=== PATIENT | male | born 1955 | race Caucasian/White ===

== ENCOUNTER 2021-03-28 16:35 | Inpatient (IN) | payer OTHER, SELFPAY ==
[2021-03-28 16:56] VITALS: BP 114/58; PULSE 84; RESP 20; TEMP 36.9; O2SAT 99; BMI 26.1
[2021-03-28 17:39] LABS: Add Manual Diff / Slide Review NO; Basophils Absolute Auto 0 /uL (0-100); Basophils Percent Auto 0.3 % (0-2); Eosinophils Absolute Auto 0 /uL (0-450); Hematocrit 32.4 % (41-53); Hemoglobin 10.8 g/dL (13.5-17.5); Lymphocytes Absolute Auto 900 /uL (1100-4500); Lymphocytes Percent Auto 6.5 % (25-40); Mean Corpuscular HGB Conc 33.3 % (30-36); Mean Corpuscular Hemoglobin 31.5 PG (26-34); Mean Corpuscular Volume 94.5 fL (80-100); Monocytes Absolute Auto 2200 /uL (0-900); Monocytes Percent Auto 16.7 % (3-14); Neutrophils Absolute Auto 10200 /uL (1500-7000); Neutrophils Percent Auto 76.5 % (50-75); Platelet Count 281 X10^3/uL (150-400); Red Blood Cell Count 3.43 X10^6/uL (4.5-5.9); Red Cell Distribution Width 19.5 % (11.6-14.8); White Blood Cell Count 13.3 X10^3/uL (4.5-11.0)
[2021-03-28 17:56] LABS: Alanine Aminotransferase 34 IU/L (<50); Albumin 2.8 g/dL (3.5-5.0); Albumin Globulin Ratio 0.6 (1.0-2.8); Alkaline Phosphatase 228 U/L (38-126); Aspartate Aminotransferase 84 IU/L (17-59); Bilirubin Total 1.2 mg/dL (0.2-1.3); Blood Urea Nitrogen 37 mg/dL (9-20); Calcium 8.8 mg/dL (8.4-10.2); Carbon Dioxide 24 mmol/L (22-32); Chloride 91 mmol/L (98-107); Estimated Glomerular Filt Rate 52.1 mL/min (>60); Globulin 4.4 g/dL (1.7-4.1); Glucose 102 mg/dL (80-110); HEMOLYSIS < 15 (0-50); Lipase 160 U/L (23-300); Potassium 4.9 mmol/L (3.4-5.1); Sodium 122 mmol/L (137-145); Total Protein 7.2 g/dL (6.3-8.2)
--- NOTE | 2021-03-28 18:20 | ED_ITS ---
HPI - Abdominal Pain General Chief Complaint: Abdominal Pain Stated Complaint: states needs a amniocenthesis Time Seen by Provider: 03/28/21 17:03 Source: patient Mode of arrival: Ambulatory Limitations: no limitations History of Present Illness HPI narrative: 65M never smoker with history Of colon cancer status post colectomy, currently receiving chemotherapy every 2 weeks (most recently 3 weeks ago in [place]) presents with a chief complaint of fatigue and lightheadedness as well as a return of abdominal swelling and concern for ascites. Patient has developed ascites as a consequence of his chronic illness, he denies any history of alcohol abuse. He has had to paracentesis, most recently last week and states they took approximately 8 L off. He presents today due to the return of swelling, he denies any pain or shortness of breath. He has had no fever or chills. He denies nausea, vomiting or diarrhea. He denies any change in his medications and states he has been taking them as prescribed Related Data Allergies Allergy/AdvReac Type Severity Reaction Status Date / Time No Known Drug Allergies Allergy Verified 03/28/21 16:56 Review of Systems Review of Systems Narrative: see HPI HEENT: Denies sinus pain, ear pain, sore throat, difficulty swallowing, dizziness. RESPIRATORY: Denies dyspnea, cough, wheezing, hemoptysis, sputum. CARDIOVASCULAR: Denies chest pain, palpitations, orthopnea, edema, GASTROINTESTINAL: See HPI : Denies dysuria, frequency, incontinence, hematuria, urinary retention. MUSCULOSKELETAL: denies weakness, joint pain, or bony pain SKIN: Denies rash, skin lesions, or other NEUROLOGIC: Denies weakness, headache, numbness, change in speech, confusion, seizures, incoordination. PSYCHIATRIC: No concerning psychosocial issues. 12 point review of systems is negative except for those stated above Patient History Medical History (Updated 03/29/21 @ 00:05 by SAIGE Cantu) Colon cancer History of abdominal paracentesis Patient on antineoplastic chemotherapy regimen Surgical History (Updated 03/29/21 @ 00:05 by SAIGE Cantu) History of colectomy Social History Smoking Status: Never smoker Smoking Status: Never smoker alcohol intake frequency: a few times a month Substance Use Type: does not use Exam Narrative Exam Narrative: GENERAL: [65] year old patient appears stated age. Well- developed patient, in mild distress. HEAD: Atraumatic. Normocephalic. EYES: Pupils equal round and reactive. Extraocular motions intact. No scleral icterus. No injection or drainage. ENT: Dry mucous membranes Nose without bleeding, purulent drainage. Throat without erythema, tonsillar hypertrophy or exudate. Airway patent. NECK: Trachea midline. Non tender CARDIOVASCULAR: Regular rate and rhythm without murmurs, gallops, or rubs. RESPIRATORY: Clear to auscultation. Breath sounds equal bilaterally. No wheezes, rales, or rhonchi. GASTROINTESTINAL: Abdomen soft, mild distension, ascites, . EXTREMITIES: No edema or joint tenderness. BACK: Nontender without deformity or crepitance. No flank tenderness. NEURO: AOx3. SKIN: No rash or erythema of visible areas Initial Vital Signs Initial Vital Signs: Vital Signs Temperature 98.5 F 03/28/21 16:56 Pulse Rate 84 03/28/21 16:56 Respiratory Rate 20 03/28/21 16:56 Blood Pressure 114/58 L 03/28/21 16:56 Pulse Oximetry 99 03/28/21 16:56 Course Orders Ordered: ED Orders 03/28/21 17:25 Complete Blood Count AUTO DIFF Stat Comprehensive Metabolic Panel Stat Lipase Stat Magnesium Urgent Uric Acid Urgent 03/28/21 18:58 Prothrombin Time INR Stat 03/28/21 20:51 US abdomen limited Stat 03/28/21 21:00 COVID19 - ADMIT (SPECIFICATION MANAGER swab/PCR) Stat 03/28/21 23:22 Education, smoking cessation ONGOING 03/28/21 23:45 Osmolality Urine Stat Osmolality, Serum Stat Sodium Urine Random Stat 03/28/21 23:48 US paracentesis Stat 03/28/21 23:52 Urinalysis and Microscopic Stat 03/28/21 23:57 Basic Metabolic Panel Urgent 03/29/21 05:00 Complete Blood Count AUTO DIFF DAILY Lipid Panel Routine Prothrombin Time INR Routine Al Hydrox/Mg Hydrox/Simethicone (Mag Hydrox/Alum/Simeth 30 Ml Udc) 30 ml PO Q6HR PRN PRN Reason: Dyspepsia Furosemide (Furosemide 40 Mg/4 Ml Vial) 20 mg IV DAILY ABHISHEK Sodium Chloride (Hypertonic Saline 3%) 500 mls @ 10 mls/hr IV CONT ABHISHEK Naloxone HCl (Naloxone 0.4 Mg/Ml Vial) 0.2 mg IV Q2MIN PRN PRN Reason: Opiate Reversal Ondansetron HCl (Ondansetron 4 Mg/2 Ml Inj) 4 mg IV Q8HR PRN PRN Reason: Nausea And Vomiting Vital Signs Vital signs: Vital Signs - 8 hr 03/28/21 16:56 03/28/21 20:23 Temperature 98.5 F Pulse Rate 84 89 Respiratory Rate 20 14 Blood Pressure 114/58 L 123/74 Pulse Oximetry 99 95 MDM - Abdominal Pain Lab Data Result diagrams: 03/28/21 17:25 03/28/21 17:25 Labs: Lab Results 03/28/21 03/28/21 03/28/21 Range/Units 17:25 17:25 17:25 WBC 13.3 H (4.5-11.0) X10^3/uL RBC 3.43 L (4.5-5.9) X10^6/uL Hgb 10.8 L (13.5-17.5) g/dL Hct 32.4 L (41-53) % MCV 94.5 (80-100) fL MCH 31.5 (26-34) PG MCHC 33.3 (30-36) % RDW 19.5 H (11.6-14.8) % Plt Count 281 (150-400) X10^3/uL Neut % (Auto) 76.5 H (50-75) % Lymph % (Auto) 6.5 L (25-40) % [place] % (Auto) 16.7 H (3-14) % Eos % (Auto) 0.0 L (2-4) % Baso % (Auto) 0.3 (0-2) % Neut # (Auto) 28098 H (0576-1980) /uL Lymph # (Auto) 900 L (3595-8514) /uL [place] # (Auto) 2200 H (0-900) /uL Eos # (Auto) 0 (0-450) /uL Baso # (Auto) 0 (0-100) /uL PT (10.1-12.7) SECONDS INR (0.9-1.3) Sodium 122 L (137-145) mmol/L Potassium 4.9 (3.4-5.1) mmol/L Chloride 91 L (98-107) mmol/L Carbon Dioxide 24 (22-32) mmol/L BUN 37 H (9-20) mg/dL Creatinine 1.37 H (0.66-1.25) mg/dL Estimated GFR 52.1 L (>60) mL/min BUN/Creatinine Ratio 27.0 H (6-22) Glucose 102 (80-110) mg/dL Uric Acid 4.9 (3.5-8.5) mg/dL Calcium 8.8 (8.4-10.2) mg/dL Magnesium (1.6-2.3) mg/dL Total Bilirubin 1.2 (0.2-1.3) mg/dL AST 84 H (17-59) IU/L ALT 34 (<50) IU/L Alkaline Phosphatase 228 H (38-126) U/L Total Protein 7.2 (6.3-8.2) g/dL Albumin 2.8 L (3.5-5.0) g/dL Globulin 4.4 H (1.7-4.1) g/dL Albumin/Globulin Ratio 0.6 L (1.0-2.8) Lipase 160 (23-300) U/L SARS-CoV-2 (PCR) (Negative) 03/28/21 03/28/21 03/28/21 Range/Units 17:25 18:58 21:00 WBC (4.5-11.0) X10^3/uL RBC (4.5-5.9) X10^6/uL Hgb (13.5-17.5) g/dL Hct (41-53) % MCV (80-100) fL MCH (26-34) PG MCHC (30-36) % RDW (11.6-14.8) % Plt Count (150-400) X10^3/uL Neut % (Auto) (50-75) % Lymph % (Auto) (25-40) % [place] % (Auto) (3-14) % Eos % (Auto) (2-4) % Baso % (Auto) (0-2) % Neut # (Auto) (1902-3100) /uL Lymph # (Auto) (7979-5340) /uL [place] # (Auto) (0-900) /uL Eos # (Auto) (0-450) /uL Baso # (Auto) (0-100) /uL PT 15.1 H (10.1-12.7) SECONDS INR 1.4 H (0.9-1.3) Sodium (137-145) mmol/L Potassium (3.4-5.1) mmol/L Chloride (98-107) mmol/L Carbon Dioxide (22-32) mmol/L BUN (9-20) mg/dL Creatinine (0.66-1.25) mg/dL Estimated GFR (>60) mL/min BUN/Creatinine Ratio (6-22) Glucose (80-110) mg/dL Uric Acid (3.5-8.5) mg/dL Calcium (8.4-10.2) mg/dL Magnesium 1.5 L (1.6-2.3) mg/dL Total Bilirubin (0.2-1.3) mg/dL AST (17-59) IU/L ALT (<50) IU/L Alkaline Phosphatase (38-126) U/L Total Protein (6.3-8.2) g/dL Albumin (3.5-5.0) g/dL Globulin (1.7-4.1) g/dL Albumin/Globulin Ratio (1.0-2.8) Lipase (23-300) U/L SARS-CoV-2 (PCR) Negative (Negative) Imaging Data US - abdomen: Radiologist's Impression: [address] [id number] ReportSigned Patient: Golden Yeboah Jr CMR#: [id number]: 6Acct:[id number]/Sex: 65 / MDate of Service: 03/28/21Loc: EDAccession Number: [id number] Procedure: US abdomen limited Ordering Provider: Miguel Zimmer D.O. PROCEDURE: US ABDOMEN LIMITED INDICATIONS: ASCITES TECHNIQUE: Real-time focused scanning was performed of the abdomen, with image documentation. COMPARISON: None. FINDINGS: There is moderate amount of ascites in all 4 quadrants of abdomen. IMPRESSION: Moderate amount of ascites in all 4 quadrant of abdomen. Dictated by: Woodrow Juarez M.D. on 03/28/2021 at 21:22 Approved by: Woodrow Juarez M.D. on 03/28/2021 at 21:22 [facility] Narrative Medical decision making narrative: Patient with recurrence of abdominal ascites as well as weakness and mild confusion in the setting of an acute hyponatremia. Today sodium is 122 and 1 week ago he was 134. Patient requires hospitalization for stabilization of his condition. There is no indication for emergent paracentesis and this can appropriately be cared for in the hospital by Radiology under ultrasound guidance. Discharge Plan Departure Patient Disposition: Admitted As Inpatient Clinical Impression: Acute hyponatremia Abdominal ascites Qualifiers: Ascites type: other type Qualified Code(s): R18.8 - Other ascites Admit Date/Time: 03/29/21 00:16 Admit Provider: Christine Tinajero
[2021-03-28 19:11] LABS: INR 1.4 (0.9-1.3); Prothrombin Time 15.1 SECONDS (10.1-12.7)
[2021-03-28 20:23] VITALS: BP 123/74; PULSE 89; RESP 14; O2SAT 95
--- NOTE | 2021-03-28 20:51 | DI.US.S_ITS ---
PROCEDURE: US ABDOMEN LIMITED INDICATIONS: ASCITES TECHNIQUE: Real-time focused scanning was performed of the abdomen, with image documentation. COMPARISON: None. FINDINGS: There is moderate amount of ascites in all 4 quadrants of abdomen. IMPRESSION: Moderate amount of ascites in all 4 quadrant of abdomen. Dictated by: Woodrow Juarez M.D. on 03/28/2021 at 21:22 Approved by: Woodrow Juarez M.D. on 03/28/2021 at 21:22
[2021-03-28 22:15] LABS: COVID19 - ADMIT (NP swab/PCR) Negative (Negative)
--- NOTE | 2021-03-28 23:48 | DI.US.S_ITS ---
PROCEDURE: US PARACENTESIS INDICATIONS: ASCITES TECHNIQUE: The indications, alternatives, benefits, risks, and complications of the procedure were explained to the patient. Written informed consent was obtained and placed in the chart. The abdomen and pelvis were examined sonographically, and an appropriate site was chosen for paracentesis. The skin was prepared and draped in the usual sterile fashion, and 1% lidocaine was infiltrated from the skin down through the peritoneal surface. A 19-gauge catheter-covered needle was then introduced into the peritoneal space, the catheter was advanced and the needle was withdrawn, and thereafter peritoneal fluid was withdrawn. The catheter was then removed and a dressing was applied. The fluid was discarded if the clinician did not order diagnostic testing of the fluid. COMPARISON: None. FINDINGS: Access site: Right lower quadrant Needle: One-Step centesis catheter with introducer needle. Fluid volume and description: 5 L; clear. Fluid sent for diagnostic testing: Per referring physician. Medications: 1% lidocaine for local anaesthesia. Complications: None. IMPRESSION: Successful ultrasound-guided paracentesis. Dictated by: Woodrow Juarez M.D. on 03/29/2021 at 12:08 Approved by: Woodrow Juarez M.D. on 03/29/2021 at 12:08
[2021-03-29] VITALS (8 sets, daily range): BP systolic 88–110; BP diastolic 54–67; PULSE 69–88; RESP 14–18; TEMP 36.6–36.8; O2SAT 97–100; BMI 26.4
--- NOTE | 2021-03-29 | P.HP_ITS ---
History of Present Illness History of Present Illness Date Patient Seen: 03/28/21 Time Patient Seen: 23:55 Chief complaint: states needs paracentesis Narrative: Patient is a 65 year old male Golden Yeboah visiting friends in [place] from [place], who presented to the ED with a chief complait of fatigue and lightheadedness as well as a return of abdominal swelling and concern for ascites. Patient has developed ascites as a consequence of his chronic chemotherapy(3yrs) treatment for colon and liver cancer. He denies any history of alcohol abuse. He has had paracentesis x2 in the past 2 months, most recently last week and states they took approximately 8 L off. He presents today due to the return of swelling, he complains of a mild pressure like pain and mild nausea, but denies chest pain and shortness of breath. He has had no fever, chills,vomiting or diarrhea. He denies any change in his medications and states he has been taking them as prescribed. Patient is a nonsmoker with history of colon and liver cancer status post colectomy, currently receiving chemotherapy every 2 weeks (most recently 3 weeks ago in [place]), patient has been on chemo since 2019-patient's oncologist has recently determined that the current chemotherapy regimen has been unsuccessful and will be transitioning the patient to oral medications as of 04/03/21. Patient also has a history of essential hypertension, insulin-dependent type 2 diabetes, hyperlipidemia, an xiety, and asthma. Patient examined in the ED, he was resting comfortably with his partner at his bedside, he states he came in because he started feeling stuffy abdominal distention. He continues to have nausea and a dull pressing diffuse abdominal discomfort 3/10, he also reports having lower extremity bilateral edema in the evenings at the end of the day but not upon waking. Patient denies any recent injury illness or trauma other than his chemotherapy cancer treatment. Upon admit patient's vitals were stable, patient had a WBC of 13.3, neutrophils 10,200, mildly anemic with a hemoglobin of 10.8, HCT 32.4. Patient has mild to moderate hyponatremia with a sodium of 122, chloride 91, BUN 37, creatinine 1.37, GFR 52.1, albumin 2.8, lipase is within normal limits. AST of 84, and alk-phos of 228. Abdominal ultrasound demonstrated moderate ascites in all 4 quadrants. Patient admitted for hyponatremia, NIMA with ascites. Patient History Medical History (Updated 03/29/21 @ 01:43 by SAIGE Cantu) Anxiety Asthma Colon cancer Essential hypertension History of abdominal paracentesis Hyperlipidemia due to type 2 diabetes mellitus Insulin dependent type 2 diabetes mellitus Liver cancer Patient on antineoplastic chemotherapy regimen Surgical History (Updated 03/29/21 @ 01:43 by SAIGE Cantu) History of colectomy Status post peripherally inserted central catheter (PICC) central line placement Family & Social History Family History Mother Hypertension Hyperlipidemia Heart disease Heart attack Father Hypertension Safety & Behavioral: Feels Safe in Current Yes-patient lives in [place] with his partner and her family, he is retired. Environment Tobacco & Substance use: Smoking Status Never smoker alcohol intake frequency a few times a month Substance Use Type does not use Meds Home Medications and Allergies Home Medications Medication Instructions Recorded Confirmed Type albuterol sulfate 90 mcg/actuation 2 puff INHALATION Q6H PRN 03/29/21 03/29/21 History aerosol inhaler atorvastatin 40 mg tablet 40 mg PO QPM 03/29/21 03/29/21 History hydrochlorothiazide 12.5 mg tablet 12.5 mg PO DAILY 03/29/21 03/29/21 History insulin degludec 100 unit/mL (3 40 unit SUBCUT DAILY 03/29/21 03/29/21 History mL) subcutaneous pen (Tresiba FlexTouch U-100 insulin) insulin glulisine U-100 100 See Rx Instructions .ROUTE .COMPLEX 03/29/21 03/29/21 History unit/mL subcutaneous pen (Apidra SoloStar U-100 Insulin) mirtazapine 45 mg tablet 45 mg PO BEDTIME 03/29/21 03/29/21 History ondansetron 8 mg disintegrating 8 mg PO Q8H PRN 03/29/21 03/29/21 History tablet spironolactone 25 mg tablet 50 mg PO BID 03/29/21 03/29/21 History valsartan 40 mg tablet 40 mg PO DAILY 03/29/21 03/29/21 History Allergies Allergy/AdvReac Type Severity Reaction Status Date / Time No Known Drug Allergies Allergy Verified 03/28/21 16:56 Review of Systems Review of Systems Narrative: All systems reviewed with the patient and are negative except otherwise documented. Exam Vital Signs (past 8 hours): - 03/28/21 16:56 03/28/21 20:23 Temperature 98.5 F Pulse Rate 84 89 Respiratory Rate 20 14 Blood Pressure 114/58 L 123/74 Pulse Oximetry 99 95 Oxygen Delivery Method Room Air Narrative Exam Narrative: General: Patient is a well-developed, moderately-nourished male, who appears older than stated age, in no distress at this time. HEENT: Normocephalic, atraumatic, extraocular muscles intact, oral pharynx is clear and mucous membranes are dry. Neck is supple and symmetric, trachea is midline, no adenopathy, no thyroid enlargement, nontender, no masses palpated. Negative for JVD Chest: Normal AP diameter and contour without kyphoscoliosis, no nasal flaring, retractions, or tachypneic labored. 1-lumen Port present to upper left chest area. Lungs: Auscultation of all lung [place] are clear without adventitious sounds, wheezes, rhonchi, or rales. Cardio: S1 & S2 with regular rate and rhythm without murmur, rubs, or gallops, no carotid bruit, no cardiac pulsations present. Abdomen: Moderately Distended, firm, diffuse pressure/tenderness with palaption. unable to palpate for organomegaly, or masses. Unable to auscultate bowel sounds in all 4 quadrants, no CVA tenderness. Musculoskeletal: Muscle strength and tone are equal within normal limits, no deformity, crepitus, effusions, cyanosis, or clubbing present. Patient does have mild bilateral equal extremity edema. Full range of motion intact radial and pedal pulses are normal. Skin: dry with poor skin tugor, intact without rashes, ulcerations or petechiae. Neuro: Alert and orientated x3, strength is +5/5 in all extremities, sensation to touch intact, no gross deficits noted of cranial nerves. Psych: Patient has a moderate-kept appearance, appropriate affect, mental status attitude thought context and judgment are appropriate for age. Objective Labs Result Diagrams: 03/28/21 17:25 03/28/21 17:25 Labs: Laboratory Results - last 24 hr 03/28/21 03/28/21 03/28/21 17:25 17:25 18:58 WBC 13.3 H RBC 3.43 L Hgb 10.8 L Hct 32.4 L MCV 94.5 MCH 31.5 MCHC 33.3 RDW 19.5 H Plt Count 281 Neut % (Auto) 76.5 H Lymph % (Auto) 6.5 L [place] % (Auto) 16.7 H Eos % (Auto) 0.0 L Baso % (Auto) 0.3 Neut # (Auto) 79665 H Lymph # (Auto) 900 L [place] # (Auto) 2200 H Eos # (Auto) 0 Baso # (Auto) 0 PT 15.1 H INR 1.4 H Sodium 122 L Potassium 4.9 Chloride 91 L Carbon Dioxide 24 BUN 37 H Creatinine 1.37 H Estimated GFR 52.1 L BUN/Creatinine Ratio 27.0 H Glucose 102 Calcium 8.8 Total Bilirubin 1.2 AST 84 H ALT 34 Alkaline Phosphatase 228 H Total Protein 7.2 Albumin 2.8 L Globulin 4.4 H Albumin/Globulin Ratio 0.6 L Lipase 160 SARS-CoV-2 (PCR) 03/28/21 21:00 WBC RBC Hgb Hct MCV MCH MCHC RDW Plt Count Neut % (Auto) Lymph % (Auto) [place] % (Auto) Eos % (Auto) Baso % (Auto) Neut # (Auto) Lymph # (Auto) [place] # (Auto) Eos # (Auto) Baso # (Auto) PT INR Sodium Potassium Chloride Carbon Dioxide BUN Creatinine Estimated GFR BUN/Creatinine Ratio Glucose Calcium Total Bilirubin AST ALT Alkaline Phosphatase Total Protein Albumin Globulin Albumin/Globulin Ratio Lipase SARS-CoV-2 (PCR) Negative Assessment & Plan Assessment & Plan narrative: Golden Yeboah requires acute care inpatient hospital management for acute mild to moderate hyponatremia, hypomagnesium, NIMA, ascites and early sepsis, after failing outpatient management. The patient is at much higher risk for medical and surgical complications because of his history of colon and liver cancer status post colectomy, with concurrent chemotherapy, and related chronic Hypomagnesium, essential hypertension, insulin-dependent type 2 diabetes, hyperlipidemia, anxiety, and asthma. These factors increase the difficulty and complexity of medical and surgical interventions and increases the chances of poor outcomes such as morbidity and mortality, as well as complications such as acute respiratory arrest, cardiac arrest, septic shock, liver and or kidney failure. The patient will require paracentesis to resolve abdominal ascites, slow correction of hyponatremia to avoid rebound, replacement of magnesium, antibiotics to cover possible abdominal infections as evidence by increasing white count until cultures and paracentesis results are available. 1. 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 Appears euvolemic at this time. -R/o hypertonic hyponatremia, pseudo hyponatremia due to hyperlipidemia, SIADH, hypothyroidism, secondary adrenal insufficiency, acquired reset Osmostat of chronic illness, thiazide-induced hyponatremia. -admit sodium 122, on 03/19/2021 Na+134 -Labs: ordered serum osmolality, urine osmolality, urine sodium, Lipids, serum uric acid, BUN to determine cause of hyponatremia -Start hypertonic 3% saline at a rate of 10 cc/hour to be given through central port. I am running at such at slow rate due to the severity of ascities until patient completes paracentesis. Monitor BNP Q4HRS if correcting too fast, stop Hypertonic saline and start D5W infusion. -hypervolemic patient- fluid restriction 2L/Qday and diuretics: Lasix 20mg IV QD -Goal to increase serum sodium initially by no more than 4-6 mEq during the 1st 24 hours to prevent the risk of osmotic demyelination syndrome, sodium at 24 hours will be 126, but no greater than 130. If greater than 130 start D5W infusion to lower to an appropriate amount. -PT /OT when improved. -hold patient's spirolactone and HCTZ 2. Abdominal ascites in all 4 quadrants, secondary to ongoing chemotherapy post colectomy as a result of colon and liver cancer, acute on chronic, present on admission -high suspicion of concern for refractory ascites vs spontaneous bacterial peritonitis verses hepatorenal syndrome type 1 -BUN 37, creatinine 1.37, GFR 52.1, albumin 2.8, WBC 13.3, with a left shift neutrophils 10,200. -Patient was able to provide his lab results from 03/19/2021: Creatinine 1.0, GFR 79, wbc's 4.8 -patient on fluid restriction, Low Na+ Diet, Lasix 20 mg IV q.day -consult for paracentesis ordered for tomorrow. -ordered 2 g Rocephin now to be followed by 1 g Q 24 hours -May consider after paracentesis results: Albumin 1.5mg/ld=913 infusion. (cr eatinine>1mg/dl, BUN >30mg/dl) 3. Acute kidney injury, early sepsis, acute, present on admission as a result of hyponatremia, abdominal ascites and possible risk for spontaneous bacterial peritonitis or hepatorenal syndrome type 1 -as evidence by creatinine 1.37 GFR 52.1 (prior door assembler 1.0, GFR 79) SOFA:2, anion gap 7.0 -plan to increase fluid resuscitation very gently tomorrow following paracen tesis -admit on telemetry, v/s Q1HR initially increase to Q4HR when sustained SBP >110, check orthostatics Qshifts, activity as tolerated, strict I&O, daily weights, call for urinary output less than 200 mL per shift or an SaO2 less than 92%, reassess or fluid restriction depending on volume status. 4. Hypomagnesium, acute on chronic, present on admission due to colon and liver cancer -as evidence by magnesium 1.5-ordered 2 g magnesium melanie -recommend restarting patient back on oral mag supplement on D/C 5. Hyperlipidemia due to insulin-dependent type 2 diabetes, acute on chronic, present on admission -patient admitted under diabetes protocol, monitor for hypoglycemia -continue patient's insulin, Trulicity, Lipitor-patient placed on low days sliding scale, blood sugar checks ACHS 6. Essential hypertension, chronic, not present on admission -patient reports that his normal systolic blood pressure runs between 150- 160. -patient's blood pressure upon admit 123/74, and has continued to decrease to 102/54 -changed V/S Q1Hr until sustained SBP>110 -holding patient's [place] 7. Anxiety, acute on chronic, present on admission -patient denies any anxiety symptoms at this time -continue patient's Remeron 45 mg at bedtime Code status: Full code Surrogate decision maker: Partner Letitia Barbour COVID PCR: Negative COVID vaccination: DVT/VTE prophylaxis: Medication held at this time due to pending procedure tomorrow, SCDs only Estimated length of stay: Greater than 2 midnights Scores GCS [place] coma scale eye opening: Spontaneous Ruba coma scale verbal response: Orientated [place] coma scale motor response: Obey commands [place] coma scale total score: 15 SOFA PaO2/FIO2: >=400 mmHg Platelets: >= 150 Bilirubin: < 1.2 mg/dL Hypotension: MAP < 70 mmHg [place] Coma Scale: 15 Renal: Creatinine 1.2-1.9 mg/dL SOFA Score: 2 Wells' Criteria for PE Clinical signs and symptoms of DVT: No PE is #1 Dx or equally likely: No Heart rate > 100: No Immobilization at least 3 days or surg in previous 4 weeks: Yes History of PE or DVT: No Hemoptysis: No Malignancy w/Treatment within 6 months or palliative: Yes Wells' PE Score total: 2.5
--- NOTE | 2021-03-29 | PATH_ITS ---
Note [facility] Accession Number: [id number] TESTS RESULT FLAG UNITS REF RANGE LAB Clinician Provided Cytology Information No. of containers..01 Other (Miscellaneous) ABDOMINAL FLUID DIAGNOSIS: 01 ABDOMINAL FLUID, ASPIRATION. INCONCLUSIVE. FEW GROUPS OF ATYPICAL EPITHELIOID CELLS IN GLANDULAR-LIKE FORMATIONS. IMMUNOSTAINS WILL BE PERFORMED FOR FURTHER CHARACTERIZATION AND RESULTS WILL FOLLOW IN AN ADDENDUM/FINAL REPORT. THIS INTERPRETATION INCLUDES EVALUATION OF A CELL BLOCK. Pathologist ICD10: 01 R18.8 Marek Andrea MD, Pathologist NPI- [id number] Jack Mora, [employer] ([facility]) 01 65 CC, PINK, CLOUDY RECEIVED: FRESH IN ORANGE CAP CONTAINER. /[facility] 04/01/2021 1001 Local FLAG LEGEND: L-Low Normal,H-High Normal,LL-Alert Low,HH-Alert High <-Panic Low,>-Panic High,A-Abnormal,AA-Critical Abnormal Performed at: 01 =[facility] [address], [place] [address] Gt Chang MD, Performed at: 01 [facility] [address], [place], [place] [id number] MD Gt Chang MD Phone: [phone]
[2021-03-29 00:25] LABS: Magnesium 1.5 mg/dL (1.6-2.3); Uric Acid 4.9 mg/dL (3.5-8.5)
[2021-03-29] MEDS: ONDANSETRON 4 MG ODT 8 MG PO (01:39)
[2021-03-29] MEDS: SODIUM CHLORIDE 3 % 500 ML 10 ML IV (02:07)
[2021-03-29] MEDS: cefTRIAXone 2,000 MG in SODIUM CHLORIDE 0.9% 100 ML 200 ML IV (02:52)
[2021-03-29] MEDS: MAGNESIUM SULFATE 2 GM/50 ML PIGGYBACK IV (03:35)
[2021-03-29 04:07] LABS: Sodium Urine Random < 5 mmol/L (30-90)
[2021-03-29 04:33] LABS: Bacteria Urine None Seen; RBC Urine None Seen (0-5/HPF); WBC Urine None Seen (0-5/HPF)
[2021-03-29 04:36] LABS: Appearance Urine UA CLEAR; Bilirubin Urine UA NEGATIVE (NEGATIVE); Color Urine UA YELLOW; Glucose Urine UA TRACE g/dL (Negative); Ketones Urine UA NEGATIVE (NEGATIVE); Leukocyte Esterase Urine UA NEGATIVE (NEGATIVE); Nitrite Urine UA NEGATIVE (Negative); Occult Blood Urine UA NEGATIVE (Negative); Protein Urine UA TRACE (Negative); Specific Gravity Urine UA 1.015 (1.000-1.035); Urobilinogen Urine UA 0.2 E.U./dL (0.2)
[2021-03-29 04:57] LABS: Culture Indicated Urine Cult Not Indicated; Hyaline Casts Urine 1-5/LPF
[2021-03-29 06:33] LABS: INR 1.3 (0.9-1.3); Prothrombin Time 14.6 SECONDS (10.1-12.7)
[2021-03-29 06:38] LABS: Alanine Aminotransferase 33 IU/L (<50); Albumin 2.7 g/dL (3.5-5.0); Albumin Globulin Ratio 0.7 (1.0-2.8); Alkaline Phosphatase 207 U/L (38-126); Aspartate Aminotransferase 78 IU/L (17-59); BUN Creatinine Ratio 26.8 (6-22); Bilirubin Total 0.8 mg/dL (0.2-1.3); Blood Urea Nitrogen 40 mg/dL (9-20); Calcium 8.7 mg/dL (8.4-10.2); Carbon Dioxide 27 mmol/L (22-32); Chloride 92 mmol/L (98-107); Cholesterol 131 mg/dL (140-199); Estimated Glomerular Filt Rate 47.3 mL/min (>60); Globulin 3.9 g/dL (1.7-4.1); Glucose 87 mg/dL (80-110); HDL Cholesterol 18 mg/dL (40-60); HEMOLYSIS < 15 (0-50); LDL Cholesterol Calculated 92 mg/dL (<100); Magnesium 2.1 mg/dL (1.6-2.3); Sodium 125 mmol/L (137-145); Total Protein 6.6 g/dL (6.3-8.2); Triglycerides 103 mg/dL (35-150)
[2021-03-29 06:43] LABS: Potassium 5.2 mmol/L (3.4-5.1)
[2021-03-29] MEDS: ONDANSETRON 4 MG/2 ML INJ IV (06:44)
[2021-03-29 07:06] LABS: Hemoglobin A1C% w Est Avg Glu 5.5 % (4.0-6.0)
--- NOTE | 2021-03-29 11:22 | PC.NURSE ---
AC note: Patient returned from US/Paracentesis in stable condition, awake, alert, and oriented. 5,000L total removed. Orthostatic VS performed on arrival. BG 92 mg/dL. IVF infusing as ordered via port a Cath to left upper chest.
[2021-03-29] MEDS: FUROSEMIDE 40 MG/4 ML VIAL 20 MG IV (11:44)
[2021-03-29] MEDS: MIDODRINE HCL 5 MG TABLET 10 MG PO (11:44)
[2021-03-29 12:38] LABS: Albumin Body Fluid < 1.0 g/dL; Total Protein Body Fluid < 2.0 g/dL
[2021-03-29 13:00] LABS: Body Fluid Red Blood Cells 15394 /uL; Body Fluid Tot Nucleated Cells 219 /uL
[2021-03-29 13:17] LABS: Body Fluid Appearance HAZY; Body Fluid Color PINK
[2021-03-29 13:18] LABS: Body Fluid Clotted? NO CLOTS PRESENT; Eosinophils Body Fluid 0 %; Mononuclear WBC Body Fluid 48 %; Other Cells Body Fluid 0 %; Polynuclear WBC Body Fluid 52 %
--- NOTE | 2021-03-29 13:32 | PM.DS.1 ---
History of Present Illness History of Present Illness Date Patient Seen: 03/29/21 Time Patient Seen: 13:32 Chief complaint: states needs paracentesis Narrative: Patient is a 65 year old male [place] visiting friends in [place] from [place], who presented to the ED with a chief complait of fatigue and lightheadedness as well as a return of abdominal swelling and concern for ascites. Patient has developed ascites as a consequence of his chronic chemotherapy(3yrs) treatment for colon and liver cancer. He denies any history of alcohol abuse. He has had paracentesis x2 in the past 2 months, most recently last week and states they took approximately 8 L off. He presents today due to the return of swelling, he complains of a mild pressure like pain and mild nausea, but denies chest pain and shortness of breath. He has had no fever, chills,vomiting or diarrhea. He denies any change in his medications and states he has been taking them as prescribed. Patient is a nonsmoker with history of colon and liver cancer status post colectomy, currently receiving chemotherapy every 2 weeks (most recently 3 weeks ago in [place]), patient has been on chemo since 2019-patient's oncologist has recently determined that the current chemotherapy regimen has been unsuccessful and will be transitioning the patient to oral medications as of 04/03/21. Patient also has a history of essential hypertension, insulin-dependent type 2 diabetes, hyperlipidemia, anxiety, and asthma. Patient examined in the ED, he was resting comfortably with his partner at his bedside, he states he came in because he started feeling stuffy abdominal distention. He continues to have nausea and a dull pressing diffuse abdominal discomfort 3/10, he also reports having lower extremity bilateral edema in the evenings at the end of the day but not upon waking. Patient denies any recent injury illness or trauma other than his chemotherapy cancer treatment. Upon admit patient's vitals were stable, patient had a WBC of 13.3, neutrophils 10,200, mildly anemic with a hemoglobin of 10.8, HCT 32.4. Patient has mild to moderate hyponatremia with a sodium of 122, chloride 91, BUN 37, creatinine 1.37, GFR 52.1, albumin 2.8, lipase is within normal limits. AST of 84, and alk-phos of 228. Abdominal ultrasound demonstrated moderate ascites in all 4 quadrants. Patient admitted for hyponatremia, NIMA with ascites. Discharge Providers Provider Date of admission: 03/29/21 00:16 Discharge Date: 03/29/21 Discharge provider: Stas Ruvalcaba DO Summary Hospital Course Discharge Diagnosis: 1. Hyponatremia, acute on chronic, present on admission 2. Abdominal ascites, acute on chronic, present on admission 3. History of colon and liver cancer, currently on chemotherapy 4. Ruled out spontaneous bacterial peritonitis 5. Acute kidney injury, present on admission 6. Hypo magnesemia, present on admission 7. Hyperlipidemia, chronic 8. Essential hypertension, chronic 9. Anxiety, chronic Hospital Course: This is a 65-year-old male who was visiting the area from [place] who presented to the emergency room with fatigue and lightheadedness as well as worsened abdominal swelling. He has had chronic ascites as result of his chemotherapy for colon liver cancer and he has had 2 recent paracenteses in the past 2 months most recently a week ago where 8 L was taken off. He initially presented with some left lower quadrant pressure-like pain and return of swelling. He was admitted for paracentesis and possible spontaneous bacterial peritonitis, he was given a dose of ceftriaxone. He was also found to have a mild hyponatremia with a sodium of 122 though he has a chronic baseline hyponatremia based on review his outpatient labs on his phone. 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 His blood pressure had improved as well. His urine sodium came back as less than 5 consistent with hypovolemia. His NIMA slightly worsened, but his creatinine is only slightly up from where it is usually is as an outpatient and this is likely to improve with cessation of his home diuretics and he can tolerate oral intake. The patient improved much more quickly than expected and was stable for discharge the following morning. Given probable hypovolemia in the setting of diuretics, I recommended he hold his losartan for another day, and permanently stop HCTZ in the setting of his hyponatremia. He should resume his Aldactone when he returns home early next week and I recommended prompt follow-up with his primary care provider once he returns home. Time Spent with Patient Time spent: Greater than 30 minutes Exam Vital Signs (past 8 hours): - 03/29/21 08:00 03/29/21 11:35 03/29/21 12:00 Temperature 97.9 F 98.2 F Pulse Rate 78 70 Pulse Rate [Orthostatic Lying] 69 Pulse Rate [Orthostatic Sitting] 70 Pulse Rate [Orthostatic Standing] 70 Respiratory Rate 14 15 Blood Pressure 96/66 106/65 Blood Pressure [Orthostatic Lying] 105/61 Blood Pressure [Orthostatic Sitting] 100/62 Blood Pressure [Orthostatic Standing] 88/65 L Pulse Oximetry 99 97 99 Oxygen Delivery Method Room Air Oxygen Flow Rate 0 Narrative Exam Narrative: General: Patient is a well-developed, moderately-nourished male, who appears older than stated age, in no distress at this time. HEENT: Normocephalic, atraumatic, extraocular muscles intact, oral pharynx is clear and mucous membranes are dry. Neck is supple and symmetric, trachea is midline, no adenopathy, no thyroid enlargement, nontender, no masses palpated. Negative for JVD Chest: Normal AP diameter and contour without kyphoscoliosis, no nasal flaring, retractions, or tachypneic labored. 1-lumen Port present to upper left chest area. Lungs: Auscultation of all lung [place] are clear without adventitious sounds, wheezes, rhonchi, or rales. Cardio: S1 & S2 with regular rate and rhythm without murmur, rubs, or gallops, no carotid bruit, no cardiac pulsations present. Abdomen: Soft, nontender, nondistended. Improved ascites after paracentesis. Musculoskeletal: Muscle strength and tone are equal within normal limits, no deformity, crepitus, effusions, cyanosis, or clubbing present. Patient does have mild bilateral equal extremity edema. Full range of motion intact radial and pedal pulses are normal. Skin: improved skin tugor, intact without rashes, ulcerations or petechiae. Neuro: Alert and orientated x3, strength is +5/5 in all extremities, sensation to touch intact, no gross deficits noted of cranial nerves. Psych: Patient has a moderate-kept appearance, appropriate affect, mental status attitude thought context and judgment are appropriate for age. Objective Labs Result Diagrams: 03/28/21 17:25 03/29/21 05:48 Labs: Laboratory Results - last 24 hr 03/28/21 03/28/21 03/28/21 17:25 17:25 17:25 WBC 13.3 H RBC 3.43 L Hgb 10.8 L Hct 32.4 L MCV 94.5 MCH 31.5 MCHC 33.3 RDW 19.5 H Plt Count 281 Neut % (Auto) 76.5 H Lymph % (Auto) 6.5 L [place] % (Auto) 16.7 H Eos % (Auto) 0.0 L Baso % (Auto) 0.3 Neut # (Auto) 80945 H Lymph # (Auto) 900 L [place] # (Auto) 2200 H Eos # (Auto) 0 Baso # (Auto) 0 PT INR Sodium 122 L Potassium 4.9 Chloride 91 L Carbon Dioxide 24 BUN 37 H Creatinine 1.37 H Estimated GFR 52.1 L BUN/Creatinine Ratio 27.0 H Glucose 102 Hemoglobin A1c Uric Acid 4.9 Calcium 8.8 Magnesium Total Bilirubin 1.2 AST 84 H ALT 34 Alkaline Phosphatase 228 H Total Protein 7.2 Albumin 2.8 L Globulin 4.4 H Albumin/Globulin Ratio 0.6 L Triglycerides Cholesterol LDL Cholesterol, Calc HDL Cholesterol Lipase 160 Urine Color Urine Appearance Urine pH Ur Specific [place] Urine Protein Urine Glucose (UA) Urine Ketones Urine Occult Blood Urine Nitrate Urine Bilirubin Urine Urobilinogen Ur Leukocyte Esterase Urine RBC Urine WBC Urine Bacteria Hyaline Casts Ur Culture Indicated? Ur Random Sodium Fluid Color Fluid Appearance Fluid RBC Fld Tot Nucleated Cell Fluid Polynuclear WBCs Fluid Mononuclear WBCs Fluid Eosinophils Fluid Other Cells Body Fluid Clot Fluid Total Protein Fluid Albumin SARS-CoV-2 (PCR) 03/28/21 03/28/21 03/28/21 17:25 18:58 21:00 WBC RBC Hgb Hct MCV MCH MCHC RDW Plt Count Neut % (Auto) Lymph % (Auto) [place] % (Auto) Eos % (Auto) Baso % (Auto) Neut # (Auto) Lymph # (Auto) [place] # (Auto) Eos # (Auto) Baso # (Auto) PT 15.1 H INR 1.4 H Sodium Potassium Chloride Carbon Dioxide BUN Creatinine Estimated GFR BUN/Creatinine Ratio Glucose Hemoglobin A1c Uric Acid Calcium Magnesium 1.5 L Total Bilirubin AST ALT Alkaline Phosphatase Total Protein Albumin Globulin Albumin/Globulin Ratio Triglycerides Cholesterol LDL Cholesterol, Calc HDL Cholesterol Lipase Urine Color Urine Appearance Urine pH Ur Specific [place] Urine Protein Urine Glucose (UA) Urine Ketones Urine Occult Blood Urine Nitrate Urine Bilirubin Urine Urobilinogen Ur Leukocyte Esterase Urine RBC Urine WBC Urine Bacteria Hyaline Casts Ur Culture Indicated? Ur Random Sodium Fluid Color Fluid Appearance Fluid RBC Fld Tot Nucleated Cell Fluid Polynuclear WBCs Fluid Mononuclear WBCs Fluid Eosinophils Fluid Other Cells Body Fluid Clot Fluid Total Protein Fluid Albumin SARS-CoV-2 (PCR) Negative 03/29/21 03/29/21 03/29/21 03:17 03:17 05:48 WBC RBC Hgb Hct MCV MCH MCHC RDW Plt Count Neut % (Auto) Lymph % (Auto) [place] % (Auto) Eos % (Auto) Baso % (Auto) Neut # (Auto) Lymph # (Auto) [place] # (Auto) Eos # (Auto) Baso # (Auto) PT 14.6 H INR 1.3 Sodium Potassium Chloride Carbon Dioxide BUN Creatinine Estimated GFR BUN/Creatinine Ratio Glucose Hemoglobin A1c Uric Acid Calcium Magnesium Total Bilirubin AST ALT Alkaline Phosphatase Total Protein Albumin Globulin Albumin/Globulin Ratio Triglycerides Cholesterol LDL Cholesterol, Calc HDL Cholesterol Lipase Urine Color Yellow Urine Appearance Clear Urine pH 5.0 Ur Specific [place] 1.015 Urine Protein Trace H Urine Glucose (UA) Trace H Urine Ketones Negative Urine Occult Blood Negative Urine Nitrate Negative Urine Bilirubin Negative Urine Urobilinogen 0.2 Ur Leukocyte Esterase Negative Urine RBC None seen Urine WBC None seen Urine Bacteria None seen Hyaline Casts 1-5/lpf Ur Culture Indicated? Cult not indicated Ur Random Sodium < 5 L Fluid Color Fluid Appearance Fluid RBC Fld Tot Nucleated Cell Fluid Polynuclear WBCs Fluid Mononuclear WBCs Fluid Eosinophils Fluid Other Cells Body Fluid Clot Fluid Total Protein Fluid Albumin SARS-CoV-2 (PCR) 03/29/21 03/29/21 03/29/21 05:48 05:48 05:48 WBC RBC Hgb Hct MCV MCH MCHC RDW Plt Count Neut % (Auto) Lymph % (Auto) [place] % (Auto) Eos % (Auto) Baso % (Auto) Neut # (Auto) Lymph # (Auto) [place] # (Auto) Eos # (Auto) Baso # (Auto) PT INR Sodium 125 L Potassium 5.2 H Chloride 92 L Carbon Dioxide 27 BUN 40 H Creatinine 1.49 H Estimated GFR 47.3 L BUN/Creatinine Ratio 26.8 H Glucose 87 Hemoglobin A1c 5.5 Uric Acid Calcium 8.7 Magnesium 2.1 Total Bilirubin 0.8 AST 78 H ALT 33 Alkaline Phosphatase 207 H Total Protein 6.6 Albumin 2.7 L Globulin 3.9 Albumin/Globulin Ratio 0.7 L Triglycerides 103 Cholesterol 131 L LDL Cholesterol, Calc 92 HDL Cholesterol 18 L Lipase Urine Color Urine Appearance Urine pH Ur Specific [place] Urine Protein Urine Glucose (UA) Urine Ketones Urine Occult Blood Urine Nitrate Urine Bilirubin Urine Urobilinogen Ur Leukocyte Esterase Urine RBC Urine WBC Urine Bacteria Hyaline Casts Ur Culture Indicated? Ur Random Sodium Fluid Color Fluid Appearance Fluid RBC Fld Tot Nucleated Cell Fluid Polynuclear WBCs Fluid Mononuclear WBCs Fluid Eosinophils Fluid Other Cells Body Fluid Clot Fluid Total Protein Fluid Albumin SARS-CoV-2 (PCR) 03/29/21 12:16 WBC RBC Hgb Hct MCV MCH MCHC RDW Plt Count Neut % (Auto) Lymph % (Auto) [place] % (Auto) Eos % (Auto) Baso % (Auto) Neut # (Auto) Lymph # (Auto) [place] # (Auto) Eos # (Auto) Baso # (Auto) PT INR Sodium Potassium Chloride Carbon Dioxide BUN Creatinine Estimated GFR BUN/Creatinine Ratio Glucose Hemoglobin A1c Uric Acid Calcium Magnesium Total Bilirubin AST ALT Alkaline Phosphatase Total Protein Albumin Globulin Albumin/Globulin Ratio Triglycerides Cholesterol LDL Cholesterol, Calc HDL Cholesterol Lipase Urine Color Urine Appearance Urine pH Ur Specific [place] Urine Protein Urine Glucose (UA) Urine Ketones Urine Occult Blood Urine Nitrate Urine Bilirubin Urine Urobilinogen Ur Leukocyte Esterase Urine RBC Urine WBC Urine Bacteria Hyaline Casts Ur Culture Indicated? Ur Random Sodium Fluid Color [place] Fluid Appearance [place] RBC [address] Fld Tot Nucleated Cell 219 Fluid Polynuclear WBCs 52 Fluid Mononuclear WBCs 48 Fluid Eosinophils 0 Fluid Other Cells 0 Body Fluid Clot No clots present Fluid Total Protein < 2.0 Fluid Albumin < 1.0 SARS-CoV-2 (PCR) PFSH Medical History (Updated 03/29/21 @ 01:43 by SAIGE Cantu) Anxiety Asthma Colon cancer Essential hypertension History of abdominal paracentesis Hyperlipidemia due to type 2 diabetes mellitus Insulin dependent type 2 diabetes mellitus Liver cancer Patient on antineoplastic chemotherapy regimen Surgical History (Updated 03/29/21 @ 01:43 by SAIGE Cantu) History of colectomy Status post peripherally inserted central catheter (PICC) central line placement Family History Mother Hypertension Hyperlipidemia Heart disease Heart attack Father Hypertension Social History household members: spouse and children Smoking Status: Never smoker alcohol intake: current Discharge Plan Discharge Plan Patient Disposition: Home Provider Discharge Comment: You were admitted to the hospital with swelling in your abdomen and a mild acute kidney injury. I recommend stopping your diuretic medications for a few days, and would not restart HCTZ in the future due to your low sodium level. Furosemide is more typically given however this can be started by your PCP. You should also hold your losartan tomorrow, but resume on Thursday. Please follow up with your PCP as soon as possible when you return home. Discharge orders & Medications Prescriptions: Continued atorvastatin 40 mg Tablet 40 mg PO QPM RF: 0 ondansetron 8 mg Tablet,Disintegrating 8 mg PO Q8H PRN (Reason: Nausea) RF: 0 mirtazapine 45 mg Tablet 45 mg PO BEDTIME RF: 0 Apidra SoloStar U-100 Insulin 100 unit/mL Insulin Pen See Rx Instructions .ROUTE .COMPLEX RF: 0 Tresiba FlexTouch U-100 100 unit/mL (3 mL) Insulin Pen 40 unit SUBCUT DAILY RF: 0 albuterol sulfate 90 mcg/actuation Hfa Aerosol Inhaler 2 puff INHALATION Q6H PRN (Reason: Wheezing) RF: 0 prochlorperazine maleate 10 mg Tablet 10 mg PO Q6H PRN (Reason: vomiting) RF: 0 escitalopram oxalate 20 mg Tablet 20 mg PO DAILY RF: 0 buspirone 10 mg Tablet 10 mg PO BID RF: 0 Discontinued spironolactone 25 mg Tablet 50 mg PO BID RF: 0 valsartan 40 mg Tablet 40 mg PO DAILY RF: 0 hydrochlorothiazide 12.5 mg Tablet 12.5 mg PO DAILY RF: 0 Diet/Activity/Treatments Diet: Diet as Tolerated Activity: As tolerated Quality VTE Deep Vein Thrombosis/Pulmonary Embolism Present on Admission: Yes
--- NOTE | 2021-03-29 14:00 | CM.DANOTE ---
Discharge Planning/Care Management DCP: assessment: case received, EMR reviewed and was updated by Dr. Ruvalcaba now that pt was ready for d/c. Pt admitted just after midnight this mornin. Payer: [employer] Adv. He resides in [place] and is here with his family. Met now with pt who confirms he will d/c today. His son is here to accompany him from the hospital. He will return to [place] and has his PCP appt already made for Monday 04/02. CM Discharge Assessment Start: 03/29/21 13:58 Freq: Status: Active Protocol: Document 03/29/21 13:59 ITV (Rec: 03/29/21 14:00 ITV [id number]) Discharge Planning Assessment Advance Directives? No Advance Directives on File No History Provided By Patient,Medical Record Prior Living Arrangements House Household Members spouse,children Willing to Return to Facility? Yes Independent with ADL's Yes Is patient alert and oriented? Yes
--- NOTE | 2021-03-29 14:26 | PC.NURSE ---
Discharge Note: Port a Cath de-accesed per protocol, to left upper chest. Discussed importance of F/U with PMD as soon as return to [place]. Discussed importance of medication changes and signs of worsening symptoms. Both patient, spouse and son verbalized understanding of discharge instructions. Home via private vehicle accompanied by family.
[2021-04-01 14:45] LABS: Osmolality, Serum 276 mOsmol/kg (280-301)
[2021-04-01 17:40] LABS: Osmolality Urine 450 mOsmol/kg (.)
== END 2021-03-29 14:30 | disposition home or self-care (01) | DRG 641 ==
LOC: ED 23:06 → AC 03-29 00:22
PROVIDERS: Emergency Medicine; Internal Medicine; Admitting Provider Nurse Practitioner Family; Emergency Provider Emergency Medicine; Referring Provider Emergency Medicine; Visit Provider Nurse Practitioner Family
DX: E87.1 Hypo-osmolality and hyponatremia (principal); R18.8 Other ascites; N17.9 Acute kidney failure, unspecified; C18.9 Malignant neoplasm of colon, unspecified; C22.8 Malignant neoplasm of liver, primary, unspecified as to type; I10 Essential (primary) hypertension; E11.9 Type 2 diabetes mellitus without complications; E78.5 Hyperlipidemia, unspecified; F41.9 Anxiety disorder, unspecified; J45.909 Unspecified asthma, uncomplicated; E83.42 Hypomagnesemia; Z20.822 Contact with and (suspected) exposure to COVID-19; Z79.4 Long term (current) use of insulin
CPT/HCPCS: 36415; 36591; 49083; 76705; 80053; 80061; 81001; 82042; 82962; 83036; 83690; 83735; 83930; 83935; 84157; 84300; 84550; 85025; 85610; 87070; 87075; 87205; 87635; 89051; 99283; 99284; C9803; G0378; J0696; J1815; J1940; J2405; J3475